=== PATIENT | male | born 1960 | race Caucasian/White ===

== ENCOUNTER 2022-09-03 08:31 | Day surgery (SDC) | payer OTHER ==
[~2022-09-03] VITALS: Ht 172.7 cm; Wt 83.0 kg
[~2022-09-03 08:31] MED LIST: AMLO5; ASPI81CH; KRILL OIL500 MG PO; LEVO-T75 MCG; LEVSOD112 PO; ROSU10TA PO; UBID10 PO; ZESTRIL40 MG; ZOLP6.25 PO; Zestril40 MG PO
== END 2022-09-03 10:45 | disposition home or self-care (01) ==
LOC: ORSCSDS 08:31
PROVIDERS: Internal Medicine Gastroenterology
PROC: 0DJD8ZZ Inspection of Lower Intestinal Tract, Via Natural or Artificial Opening Endoscopic (ICD-10-PCS; principal; 2022-09-03 09:45)
DX: Z12.11 Encounter for screening for malignant neoplasm of colon (principal); Z86.010 Personal history of colon polyps; K64.8 Other hemorrhoids; K57.30 Diverticulosis of large intestine without perforation or abscess without bleeding; F17.210 Nicotine dependence, cigarettes, uncomplicated; Z79.899 Other long term (current) drug therapy
CPT/HCPCS: J2704; J7120

== ENCOUNTER 2024-06-03 06:10 | Day surgery (SDC) | payer OTHER ==
[~2024-06-03] VITALS: Ht 170.2 cm; Wt 80.0 kg
[2024-06-03] VITALS (13 sets, daily range): BP systolic 97–139; BP diastolic 65–99
[~2024-06-03 06:10] MED LIST changes: +Amlodipine Bes2.5 MG PO; +C COMPLEX1000 M1 PO; +VITAMIN D31000 UNI1 PO; +Vitamin B-12100 MCG PO
[2024-06-03] MEDS ORDERED: CefOXitin Sodium 2,000 MG in NS 50 ML IV SCH (06:20)
[2024-06-03] MEDS ORDERED: Lactated Ringer's 1,000 ML IV SCH (06:20)
[2024-06-03] MEDS ORDERED: Indocyanine Green 25 MG Vial IV ONE (06:25)
[2024-06-03] MEDS ORDERED: LEVO-T125 MC1 PO (06:52)
[2024-06-03] MEDS ORDERED: Bupivacaine 0.5% HCl 5 MG/ML 30MLVIAL ONE (07:10)
[2024-06-03] MEDS ORDERED: Dexmedetomidine HCL 200 MCG / 2 ML ONE (07:11)
[2024-06-03] MEDS ORDERED: Midazolam HCl 1MG / ML 2ML Vial ONE (07:15)
[2024-06-03] MEDS ORDERED: propofoL 40 ML IV ONE (07:15)
[2024-06-03] MEDS ORDERED: Rocuronium Bromide 10 MG/ML 5ML Injection IV ONE ×2 (07:15→08:00)
[2024-06-03] MEDS ORDERED: HYDROmorphone HCl/Pf 1MG SYR ONE (07:15)
[2024-06-03] MEDS ORDERED: Lidocaine HCl 2% 20 ML MDV ONE (07:15)
--- NOTE | 2024-06-03 07:33 | NUR ---
History, Chart, Medications and Allergies reviewed before start of procedure. Patient up to Ambulate independently. Gait steady. Pre-Op teaching done. Pt verbalizes understanding. Patient confirms NPO status and agrees with scheduled surgery. Patient reports completing Chlorhexadine shower X2 prior to admission to hospital. Surgical site prepped with 2% Chlorhexidine cloth wipe. Lungs clear T/O to Auscultation. Patient States Post-Procedure ride home has been arranged. Eye glasses sent to PACU; RX given to spouse.
[2024-06-03] MEDS ORDERED: Dexamethasone Sod Phos 10 MG/ML 1ML VIAL ONE (07:47)
[2024-06-03] MEDS ORDERED: Phenylephrine HCl 100 MCG/ML-NS 10MLSYR (1MG/10ML) ONE (08:03)
[2024-06-03] MEDS ORDERED: Sugammadex Sodium 200 MG/2ML SDV (100 MG/ML) ONE (08:35)
[2024-06-03] MEDS ORDERED: Ondansetron HCl 2 MG / ML 2ML Vial ONE (08:37)
[2024-06-03] MEDS ORDERED: OxyCODONE 5 mg/Acetamin 325 mg TABLET PO PRN (09:05)
[2024-06-03] MEDS ORDERED: FentaNYL Citrate 50 MCG/ML 2 ML Injection ONE (09:15)
--- NOTE | 2024-06-03 11:03 | NUR ---
Patient up to Ambulate independently. Gait steady. Discharge instructions reviewed with patient. Patient verbalizes understanding. Copy given to patient to take home, WELL . Patient States Post-Procedure ride home has been arranged. Discharged via wheelchair to private car for ride home. PT REPORTS PAIN TOLERABLE. DENIES N/V,SOB,CP. INCISIONS C/D/I. PT REPORTS READY TO GO HOME.
== END 2024-06-03 11:03 | disposition home or self-care (01) ==
LOC: ORSCMMR 06:10 → ORD 07:30 → ORSCMMR 07:30
PROVIDERS: Surgery
PROC: 0FT44ZZ Resection of Gallbladder, Percutaneous Endoscopic Approach (ICD-10-PCS; principal; 2024-06-03 07:30)
PROC: BF031ZZ Plain Radiography of Gallbladder and Bile Ducts using Low Osmolar Contrast (ICD-10-PCS; principal; 2024-06-03 07:30)
DX: K80.10 Calculus of gallbladder with chronic cholecystitis without obstruction (principal); K66.0 Peritoneal adhesions (postprocedural) (postinfection); I10 Essential (primary) hypertension; E03.9 Hypothyroidism, unspecified; Z79.899 Other long term (current) drug therapy
CPT/HCPCS: 88304; A9270; J0694; J1100; J1170; J2250; J2371; J2405; J2704; J3010; J7120